=== PATIENT | male | born 1975 | race Caucasian/White ===

== ENCOUNTER 2020-10-13 08:42 | Emergency (ER) | payer OTHER ==
[~2020-10-13] VITALS: Ht 190.5 cm; Wt 100.0 kg
[2020-10-13 09:10] VITALS: BP 116/66
--- NOTE | 2020-10-13 09:16 | PHYS DOC ---
Past Medical History Past Medical History: No Pertinent History Past Surgical History: No Surgical History Smoking Status: Current Every Day Smoker Alcohol Use: None General Adult EDM: Chief Complaint: BACK PAIN OR INJURY HPI: HPI: Patient is a 45 year old male presents emergency department reporting a sudden onset of right low back pain that started at approximately 745 this morning when he was throwing bags filled with leaves over a fence. Patient states that he was moving a twisting motion and he felt his low back pop and then felt the pain immediately. Patient states that he is unable to stand straight up without severe pain. Patient reports his pain a 10/10 on a 1-10 pain scale. Patient states he did not take anything for his pain prior to coming to the emergency department this morning. Patient states that he had his help him to the car and that she drove him here for evaluation. Patient's is at bedside. Patient states that he had only one other episode of low back pain like this approximately 6 years ago while doing the same type of motion. Patient states he was diagnosed with sciatica. Patient states that the pain is mainly on the right side of his low back, pain radiates down right buttocks and down leg feeling numb and tingly when he stands in an upright position. Patient states that he stays in a bent over position bracing himself with his arms that his pain is more tolerable. Patient denies loss of bowel or loss of bladder. P atient denies any swelling to his extremities. Patient denies any recent fever or chills, denies chest pains, denies shortness of breath. Patient denies any other physical complaints or physical ailments. Patient states he has a history of gastric ulcers for which he takes as needed MiraLAX and daily Pepcid AC. Patient denies allergies to medications. Review of Systems: Review of Systems: 14 body systems of review of systems have been reviewed. See HPI for pertinent positives and negative responses, otherwise all other systems are negative, nonpertinent or noncontributory. Heart Score: Risk Factors: Risk Factors: DM, Current or recent (<one month) smoker, HTN, HLP, family history of CAD, obesity. Risk Scores: Score 0 - 3: 2.5% MACE over next 6 weeks - Discharge Home Score 4 - 6: 20.3% MACE over next 6 weeks - Admit for Clinical Observation Score 7 - 10: 72.7% MACE over next 6 weeks - Early Invasive Strategies Current Medications: Patient reports taking [id number]-rizwylr Pepcid AC, takes prescription strength MiraLAX. Allergies: Allergies: Patient denies allergies to medications. Physical Exam: PE: Constitutional: Well developed, well nourished, no acute distress, non-toxic appearance. Patient presents in a bent over standing position bracing self on chair with arms. HENT: Normocephalic, atraumatic, bilateral external ears normal, oropharynx moist, no oral exudates, nose normal. Eyes: PERRLA, EOMI, conjunctiva normal, no discharge. Neck: Normal range of motion, no tenderness, supple, no stridor. Cardiovascular:Heart rate regular rhythm, no murmur Lungs & Thorax: Bilateral breath sounds clear to auscultation Abdomen: Bowel sounds normal, soft, no tenderness, no masses, no pulsatile masses. Skin: Warm, dry, no erythema, no rash. Back: No CVA tenderness elicited, pain to palpation along lower lumbar spine and right side lumbar area. No pain elicited to palpation along right buttocks or down right leg. Pain elicited during passive range of motion. Increased pain when standing and orthostasis position. Patient reports numbness down the back of right leg when standing and orthostasis position. Patient immediately resumes bent over standing position with bracing arms on chair for comfort after physical examination. Distal cap refill less than 2 seconds. 2+ dorsalis pedis and posterior tibial pulses. No lower extremity edema or swelling appreciated. Extremities: No tenderness, no cyanosis, no clubbing, ROM intact, no edema. Neurologic: Alert and oriented X 3, normal motor function, normal sensory function, no focal deficits noted. Psychologic: Affect normal, judgement normal, mood normal. Current Patient Data: Vital Signs: Vital Signs Date Time Temp Pulse Resp B/P (MAP) Pulse Ox O2 Delivery O2 Flow Rate FiO2 10/13/20 09:10 98.0 71 18 116/66 (83) 98 Room Air 98.0 EKG: EKG: [] Radiology/Procedures: Radiology/Procedures: : 1975 LOCATION: ER AGE: 45 SEX: M EXAM STATUS: REG ER ORD. PHYSICIAN: ADAMOVICH,CRESCENCIO SINGING WAITER OR WAITRESS REASON: SUDDEN ONSET LOW BACK PAIN PROCEDURE: CT LUMBAR SPINE WO CONTRAST EXAM: CT Cervical Spine with and without IV contrast INDICATION: Reason: SUDDEN ONSET LOW BACK PAIN / Spl. Instructions: / History: TECHNIQUE: Multi-detector row CT images were obtained through the cervical spine with and without the use of IV contrast. Post-processing sagittal and coronal reconstructed images were obtained for interpretation. All CT scans per formed at this facility utilize dose optimization techniques as appropriate to the exam, including the following: Automated exposure control and adjustment of the mA and/or KV according to patient size (this includes techniques or standardized protocols for targeted exams where dose is indication/reason for exam). IV CONTRAST: Administered COMPARISON: None FINDINGS: CRANIOCERVICAL JUNCTION: Unremarkable. ALIGNMENT: Alignment is within normal limits. OSSEOUS: No evidence of fracture or bone destruction. DISC SPACES: Mild multilevel disc space narrowing is present, most conspicuously at L3-L4, associated with a diffuse disc bulge. FACET JOINTS: Unremarkable. SPINAL CANAL: Unremarkable. NEUROFORAMINA: Unremarkable. SOFT TISSUES: Unremarkable. IMPRESSION: 1. No evidence for acute fracture or subluxation. 2. Mild multilevel degenerative disc disease, most conspicuous on CT at L3-L4.. Electronically signed by: Rachana Cochran MD (10/13/2020 10:12 AM) [id number] DICTATED and SIGNED BY: RACHANA COCHRAN MD DATE: 10/13/20 [id number] 0 Course & Med Decision Making: Course & Med Decision Making Pertinent Labs and Imaging studies reviewed. (See chart for details) 45-year-old male vital signs reviewed who presents with low back pain after throwing bags of leaves over fence in a twisting motion. Physical exam revealed no saddle anesthesia, however related to midline spinal tenderness of the low lumbar area a CT lumbar spine was ordered. Also p.o. muscle relaxer and I am Toradol for pain along with 1 p.o. 5/[address] results at this t [facility]. CT imaging interpreted by house radiologist showed no acute fracture, concerning for degenerative changes, discussed findings with patient, reexamination of patient showed patient pain more tolerable, patient able to sit and normal upright sitting position without acute unbearable pain, rated his pain a 5/10 1- 10 pain scale. Discussed back exercises at home, follow-up with primary care regarding CT concerning for degenerative disc disease, prescriptions for Flexeril and ibuprofen at home, patient gave verbal understanding of discharge home instructions, follow-up with primary care instructions, return to ER precautions and concerns, had no further questions or concerns was discharged home without incident. Carisa Disclaimer: Carisa Disclaimer: This electronic medical record was generated, in whole or in part, using a voice recognition dictation system. Departure Departure Impression: Primary Impression: Sciatica Qualified Codes: M54.31 - Sciatica, right side Additional Impression: Lumbago Qualified Codes: M54.41 - Lumbago with sciatica, right side Disposition: DC HOME SELF CARE/HOMELESS Condition: IMPROVED Referrals: UNKNOWN PCP NAME (PCP) Patient Instructions: Back Pain, Adult Additional Instructions: Please take prescription medications as directed, follow-up with your primary care doctor for ongoing back pain symptoms, discussed with your primary care doctor abnormal CT performed here today show indeed generative disc disease of your lumbar spine, return emergency department for worsening symptoms or other concerns. EMERGENCY DEPARTMENT GENERAL DISCHARGE INSTRUCTIONS Thank you for coming to [facility] Emergency Department (ED) today and trusting us with you care. We trust that you had a positive experience in our Emergency Department. If you wish to speak to the department management, you may call the Director at [phone]. YOUR FOLLOW UP INSTRUCTIONS ARE FOLLOWS: 1. Do you have a private Doctor? If you do not have a private doctor, please ask for a resource list of physicians or clinics that may be able to assist you with follow up care. 2. The Emergency Physicain has interpreted your x-rays. The X-Ray specialist will also review them. If there is a change in the findings, you will be notified in 48 hours when at all possible. 3. A lab test or culture has been done, your results will be reviewed and you will be notified if you need a change in treatment. ADDITIONAL INSTRUCTIONS AND INFORMATION: 1. Your care today has been supervised by a physician who is specially trained in emergency care. Many problems require more than one evaluation for a complete diagnosis and treatment. We recommend that you schedule your follow up appointment as recommended to ensure complete treatment of you illness or injury. If you are unable to obtain follow up care and continue to have a problem, or if your condition worsens, we recommend that you return to the ED. 2. We are not able to safely determine your condition over the phone nor are we able to give sound medical advice over the phone. For these safety reasons, if you call for medical advice we will ask you to come to the ED for further evaluation. 3. If you have any questions regarding these discharge instructions please call the ED at [phone]. SAFETY INFORMATION: In the interest of safety, wellness, and injury prevention; we encourage you to wear your sealbelt, if you smoke; quite smoking, and we encourage family to use a protective helmet for bicycling and other sporting events that present an increased risk for head injury. IF YOUR SYMPTOMS WORSEN OR NEW SYMPTOMS DEVELOP, OR YOU HAVE CONCERNS ABOUT YOUR CONDITION; OR IF YOUR CONDITION WORSENS WHILE YOU ARE WAITING FOR YOUR FOLLOW UP APPOINTMENT; EITHER CONTACT YOUR PRIMARY CARE DOCTOR, THE PHYSICIAN WHOSE NAME AND NUMBER YOU WERE GIVEN, OR RETURN TO THE ED IMMEDIATELY. Scripts Cyclobenzaprine Hcl (CYCLOBENZAPRINE HCL) 10 Mg Tablet 10 MG PO TID PRN PRN for MUSCLE SPASMS, #20 TAB 0 Refills Prov: EFE JOHNSON APRN 10/13/20 Ibuprofen (IBUPROFEN) 600 Mg Tablet 600 MG PO TID PRN PRN for INFLAMMATION, #20 TAB 0 Refills Prov: EFE JOHNSON APRN 10/13/20 EFE JOHNSON APRN Oct 13, 2020 09:16
[2020-10-13] MEDS ORDERED: methylPREDNISolone ACETATE 80 MG/ML VIAL. IM ONE (10:00)
[2020-10-13] MEDS ORDERED: HYDROcodone/APAP 5/325MG 1 TAB TABLET PO ONE (10:00)
[2020-10-13] MEDS ORDERED: CYCLOBENZAPRINE 10 MG TABLET. PO ONE (10:00)
[2020-10-13] MEDS ORDERED: KETOROLAC 60 MG/2 ML VIAL. IM ONE (10:00)
--- NOTE | 2020-10-13 10:17 | RAD ---
EXAM: CT Cervical Spine with and without IV contrast INDICATION: Reason: SUDDEN ONSET LOW BACK PAIN / Spl. Instructions: / History: TECHNIQUE: Multi-detector row CT images were obtained through the cervical spine with and without th e use of IV contrast. Post-processing sagittal and coronal reconstructed images were obtained for int erpretation. All CT scans performed at this facility utilize dose optimization techniques as appropri ate to the exam, including the following: Automated exposure control and adjustment of the mA and/or KV according to patient size (this includes techniques or standardized protocols for targeted exams w here dose is indication/reason for exam). IV CONTRAST: Administered COMPARISON: None FINDINGS: CRANIOCERVICAL JUNCTION: Unremarkable. ALIGNMENT: Alignment is within normal limits. OSSEOUS: No evidence of fracture or bone destruction. DISC SPACES: Mild multilevel disc space narrowing is present, most conspicuously at L3-L4, associate d with a diffuse disc bulge. FACET JOINTS: Unremarkable. SPINAL CANAL: Unremarkable. NEUROFORAMINA: Unremarkable. SOFT TISSUES: Unremarkable. IMPRESSION: 1. No evidence for acute fracture or subluxation. 2. Mild multilevel degenerative disc disease, most conspicuous on CT at L3-L4.. Electronically signed by: Rafa Cochran MD (10/13/2020 10:12 AM) [id number]
[2020-10-13] MEDS ORDERED: IBUP-1007 PO (10:29)
[2020-10-13] MEDS ORDERED: CYCL10TA2 PO (10:29)
== END 2020-10-13 10:45 | disposition home or self-care (01) ==
LOC: ER 08:42
DX: M54.41 Lumbago with sciatica, right side (principal); F17.200 Nicotine dependence, unspecified, uncomplicated
CPT/HCPCS: 72131; 96372; 99284; J1040; J1885

== ENCOUNTER 2021-06-09 11:14 | Observation (INO) | payer OTHER ==
[~2021-06-09] VITALS: Ht 190.5 cm; Wt 105.0 kg
[~2021-06-09 11:14] MED LIST: CYCL10TA2 PO; IBUP-1007 PO
[2021-06-09 11:39] LABS: BASO % 1 % (0-3); EOS % 0 % (0-3); HEMATOCRIT 45.8 % (39.0-53.0); LYMPH # 1.8 x10^3/uL (1.0-4.8); LYMPH % 22 % (24-48); MEAN CORPUSCULAR HEMOGLOBIN 32 pg (25-35); MEAN CORPUSCULAR HGB CONC 35 g/dL (31-37); MEAN CORPUSCULAR VOLUME 92 fL (79-100); MONO # 0.8 x10^3/uL (0.0-1.1); MONO % 10 % (0-9); NEUT # 5.6 x10^3/uL (1.8-7.7); NEUT % 68 % (31-73); PLATELET COUNT 284 x10^3/uL (140-400); RED BLOOD COUNT 4.99 x10^6/uL (4.30-5.70); RED CELL DISTRIBUTION WIDTH 13.8 % (11.5-14.5); WHITE BLOOD COUNT 8.3 x10^3/uL (4.0-11.0)
[2021-06-09 11:47] LABS: CALCIUM 10.2 mg/dL (8.5-10.1); CREATININE 1.2 mg/dL (0.7-1.3); GFR 64.9; POTASSIUM 3.9 mmol/L (3.5-5.1)
[2021-06-09 11:54] LABS: ALBUMIN 4.1 g/dL (3.4-5.0); ALBUMIN/GLOBULIN RATIO 1.2 (1.0-1.7); MAGNESIUM 1.9 mg/dL (1.8-2.4); TOTAL BILIRUBIN 0.4 mg/dL (0.2-1.0); TOTAL PROTEIN 7.5 g/dL (6.4-8.2)
--- NOTE | 2021-06-09 11:55 | RAD ---
EXAM: XR CHEST 1V 06/09/2021 11:22 AM CLINICAL INDICATION: Chest pain COMPARISON: None TECHNIQUE: AP upright view of the chest FINDINGS: The heart and mediastinum are normal. Lungs are well-expanded and clear. No consolidatio n, pleural effusion, or pneumothorax. Pulmonary vascularity is normal. No acute osseous abnormality. IMPRESSION: Normal chest radiograph. Electronically signed by: Nasra Miller MD (06/09/2021 11:52 AM) [id number]
--- NOTE | 2021-06-09 14:01 | PHYS DOC ---
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 On route EMS gave him 3 and 24 mg aspirin and 2 doses of nitroglycerin. Patient felt much better. Patient had no history of previous coronary artery disease, no history of blood clot disorder, no cough, no fever. Patient said he was vaccinated for COVID-19 only 1 dose 2 months ago. Patient denies any cough or fever, he denies any abdominal pain. Patient denies any recent travel operation Review of Systems: Review of Systems: Constitutional: Denies fever or chills. [] Eyes: Denies change in visual acuity. [] HENT: Denies nasal congestion or sore throat. [] Respiratory: Denies cough or shortness of breath. [] Cardiovascular: Positive for chest pain. GI: Denies abdominal pain, nausea, vomiting, bloody stools or diarrhea. [] : Denies dysuria. [] Musculoskeletal: Denies back pain or joint pain. [] Integument: Denies rash. [] Neurologic: Denies headache, focal weakness or sensory changes. [] Endocrine: Denies polyuria or polydipsia. [] Lymphatic: Denies swollen glands. [] Psychiatric: Denies depression or anxiety. [] Heart Score: C/O Chest Pain: Yes HEART Score for Chest Pain: HEART Score for Chest Pain Response (Comments) Value History Moderately Suspicious 1 ECG Nonspecific Repolarizatio 1 Age >45 - < 65 1 Risk Factors 1 or 2 Risk Factors 1 Troponin < Normal Limit 0 Total 4 Risk Factors: Risk Factors: DM, Current or recent (<one month) smoker, HTN, HLP, family history of CAD, obesity. Risk Scores: Score 0 - 3: 2.5% MACE over next 6 weeks - Discharge Home Score 4 - 6: 20.3% MACE over next 6 weeks - Admit for Clinical Observation Score 7 - 10: 72.7% MACE over next 6 weeks - Early Invasive Strategies Allergies: Allergies: Allergies Coded Allergies Type Severity Reaction Last Updated Verified No Known Drug Allergies 10/13/20 No Physical Exam: PE: Constitutional: Well developed, well nourished, no acute distress, non-toxic appearance. [] HENT: Normocephalic, atraumatic, bilateral external ears normal, oropharynx moist, no oral exudates, nose normal. [] Eyes: PERRLA, EOMI, conjunctiva normal, no discharge. [] Neck: Normal range of motion, no tenderness, supple, no stridor. [] Cardiovascular:Heart rate regular rhythm, no murmur [] Lungs & Thorax: Bilateral breath sounds clear to auscultation [] Abdomen: Bowel sounds normal, soft, no tenderness, no masses, no pulsatile masses. [] Skin: Warm, dry, no erythema, no rash. [] Back: No tenderness, no CVA tenderness. [] Extremities: No tenderness, no cyanosis, no clubbing, ROM intact, no edema. [] Neurologic: Alert and oriented X 3, normal motor function, normal sensory function, no focal deficits noted. [] Psychologic: Affect normal, judgement normal, mood normal. [] Current Patient Data: Labs: Laboratory Tests Test 06/09/21 11:25 06/09/21 12:53 White Blood Count 8.3 x10^3/uL (4.0-11.0) Red Blood Count 4.99 x10^6/uL (4.30-5.70) Hemoglobin 16.0 g/dL (13.0-17.5) Hematocrit 45.8 % (39.0-53.0) Mean Corpuscular Volume 92 fL (79-100) Mean Corpuscular Hemoglobin 32 pg (25-35) Mean Corpuscular Hemoglobin Concent 35 g/dL (31-37) Red Cell Distribution Width 13.8 % (11.5-14.5) Platelet Count 284 x10^3/uL (140-400) Neutrophils (%) (Auto) 68 % (31-73) Lymphocytes (%) (Auto) 22 % (24-48) L Monocytes (%) (Auto) 10 % (0-9) H Eosinophils (%) (Auto) 0 % (0-3) Basophils (%) (Auto) 1 % (0-3) Neutrophils # (Auto) 5.6 x10^3/uL (1.8-7.7) Lymphocytes # (Auto) 1.8 x10^3/uL (1.0-4.8) Monocytes # (Auto) 0.8 x10^3/uL (0.0-1.1) Eosinophils # (Auto) 0.0 x10^3/uL (0.0-0.7) Basophils # (Auto) 0.0 x10^3/uL (0.0-0.2) Sodium Level 139 mmol/L (136-145) Potassium Level 3.9 mmol/L (3.5-5.1) Chloride Level 104 mmol/L (98-107) Carbon Dioxide Level 23 mmol/L (21-32) Anion Gap 12 (6-14) Blood Urea Nitrogen 18 mg/dL (8-26) Creatinine 1.2 mg/dL (0.7-1.3) Estimated GFR (Cockcroft-Gault) 64.9 BUN/Creatinine Ratio 15 (6-20) Glucose Level 113 mg/dL (70-99) H Calcium Level 10.2 mg/dL (8.5-10.1) H Magnesium Level 1.9 mg/dL (1.8-2.4) Total Bilirubin 0.4 mg/dL (0.2-1.0) Aspartate Amino Transferase (AST) 16 U/L (15-37) Alanine Aminotransferase (ALT) 32 U/L (16-63) Alkaline Phosphatase 77 U/L (46-116) Troponin I Quantitative < 0.017 ng/mL (0.000-0.055) DW-Tes-E-Type Natriuretic Peptide 78 pg/mL (0-124) Total Protein 7.5 g/dL (6.4-8.2) Albumin 4.1 g/dL (3.4-5.0) Albumin/Globulin Ratio 1.2 (1.0-1.7) Lipase 68 U/L (73-393) L SARS-CoV-2 Antigen (Rapid) Negative (NEGATIVE) Laboratory Tests 06/09/21 11:25 Laboratory Tests 06/09/21 11:25 Vital Signs: Vital Signs Date Time Temp Pulse Resp B/P (MAP) Pulse Ox O2 Delivery O2 Flow Rate FiO2 06/09/21 12:37 65 15 127/67 (87) 97 Room Air 06/09/21 11:30 98.2 98.2 EKG: EKG: EKG was done at 1120, heart rate of 77 bpm, sinus rhythm, right bundle branch block, no ST segment elevation. Radiology/Procedures: Radiology/Procedures: [][facility] [address] [place] [address] IMAGING REPORT Signed PATIENT: RAVEN GARVIN ACCOUNT: [id number] : 1975 LOCATION: ER AGE: 46 SEX: M EXAM STATUS: REG ER ORD. PHYSICIAN: HENOK SCHNEIDER DO REASON: chest pain PROCEDURE: PORTABLE CHEST 1V EXAM: XR CHEST 1V 06/09/2021 11:22 AM CLINICAL INDICATION: Chest pain COMPARISON: None TECHNIQUE: AP upright view of the chest FINDINGS: The heart and mediastinum are normal. Lungs are well-expanded and clear. No consolidation, pleural effusion, or pneumothorax. Pulmonary vascularity is normal. No acute osseous abnormality. IMPRESSION: Normal chest radiograph. Electronically signed by: Nasra Miller MD (06/09/2021 11:52 AM) [id number] DICTATED and SIGNED BY: NASRA MILLER MD DATE: 06/09/21 [id number] 0 Course & Med Decision Making: Course & Med Decision Making Pertinent Labs and Imaging studies reviewed. (See chart for details) Patient is a 46 male who present to ER due to substernal chest pain EKG showed right bundle branch block, cardiac enzymes come back normal so far. Patient denies any chest pain at this time. Patient will be admitted for observation Dragon Disclaimer: Dragon Disclaimer: This electronic medical record was generated, in whole or in part, using a voice recognition dictation system. Departure Departure Impression: Primary Impression: Chest pain Disposition: ADMITTED INPATIENT Admitting Physician: MATHEW (Dr. Galloway) Condition: IMPROVED Referrals: NON,STAFF (PCP) HENOK SCHNEIDER DO Jun 09, 2021 14:01
--- NOTE | 2021-06-09 15:51 | PDOC1 ---
History and Physical Date of Service: DOS: DATE: 06/09/21 TIME: 15:47 Chief Complaint: Chief Complain: Chest pain. 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 He was given 324 mg of aspirin and 2 doses of nitroglycerin and his chest pain feels better. At this point he does not complaining of chest pain or any other symptoms. Denies any fevers, history of coronary artery disease, abdominal pain, diarrhea, dysuria, hematuria or bloody stools. Patient is not on any blood thinners. Patient was vaccinated for Covid 2 months ago. Past Medical/Surgical History: PMH/PSH: Past Medical History: No Pertinent History Past Surgical History: left arm Allergies: Allergies: Coded Allergies: No Known Drug Allergies (Unverified , 10/13/20) Family History: Family History: Reviewed with no relevant findings Social History: Social History: Smoking Status: Current Every Day Smoker Alcohol Use: None Current Medications: Current Medications Active Scripts Active Cyclobenzaprine Hcl 10 Mg Tablet 10 Mg PO TID PRN PRN Ibuprofen 600 Mg Tablet 600 Mg PO TID PRN PRN ROS: Review of Systems Review of System REVIEW OF SYSTEMS: GENERAL: Denies weakness SKIN: No bruising, hair changes or rashes. EYES: No blurred, double or loss of vision. NOSE AND THROAT: No history of nosebleeds, hoarseness or sore throat. HEART: Positive for chest pain LUNGS: Denies cough, hemoptysis, wheezing or shortness of breath. GASTROINTESTINAL: Denies changes in appetite, nausea, vomiting, diarrhea or constipation. GENITOURINARY: No history of frequency, urgency, hesitancy or nocturia. NEUROLOGIC: Denies history of numbness, tingling, or tremor. PSYCHIATRIC: No history of panic, anxiety or depression. ENDOCRINE: No history of heat or cold intolerance, polyuria or polydipsia. EXTREMITIES: Denies joint pain, pain on walking or stiffness. Physical Exam: Vital Signs: Vital Signs Date Time Temp Pulse Resp B/P (MAP) Pulse Ox O2 Delivery O2 Flow Rate FiO2 06/09/21 14:28 81 15 127/62 (83) 98 06/09/21 12:37 Room Air 06/09/21 11:30 98.2 98.2 Physcial Exam: General: Well developed, well nourished, no acute distress, well appearing HEENT: Pupils equally round and reactive to light, EOMI, no discharge, normal conjunctiva Neck: Supple, no nuchal rigidity, no JVD, trachea midline, no tenderness Cardiac: RRR, no murmurs, no gallops, no rubs Chest/Lungs: CTAB, no wheeze, no rhonchi, no crackles Abdomen: soft, non-distended, no guarding, no peritoneal signs, non-tender Back: No tenderness Extremities: no edema, pulses intact, non-tender,capillary refill <3 sec bilateral upper and lower extremities, Neuro: Alert and oriented x 4, no focal deficits, normal speech Labs: Labs: Laboratory Tests Test 06/09/21 11:25 06/09/21 12:53 06/09/21 14:04 White Blood Count 8.3 x10^3/uL (4.0-11.0) Red Blood Count 4.99 x10^6/uL (4.30-5.70) Hemoglobin 16.0 g/dL (13.0-17.5) Hematocrit 45.8 % (39.0-53.0) Mean Corpuscular Volume 92 fL (79-100) Mean Corpuscular Hemoglobin 32 pg (25-35) Mean Corpuscular Hemoglobin Concent 35 g/dL (31-37) Red Cell Distribution Width 13.8 % (11.5-14.5) Platelet Count 284 x10^3/uL (140-400) Neutrophils (%) (Auto) 68 % (31-73) Lymphocytes (%) (Auto) 22 % (24-48) Monocytes (%) (Auto) 10 % (0-9) Eosinophils (%) (Auto) 0 % (0-3) Basophils (%) (Auto) 1 % (0-3) Neutrophils # (Auto) 5.6 x10^3/uL (1.8-7.7) Lymphocytes # (Auto) 1.8 x10^3/uL (1.0-4.8) Monocytes # (Auto) 0.8 x10^3/uL (0.0-1.1) Eosinophils # (Auto) 0.0 x10^3/uL (0.0-0.7) Basophils # (Auto) 0.0 x10^3/uL (0.0-0.2) Sodium Level 139 mmol/L (136-145) Potassium Level 3.9 mmol/L (3.5-5.1) Chloride Level 104 mmol/L (98-107) Carbon Dioxide Level 23 mmol/L (21-32) Anion Gap 12 (6-14) Blood Urea Nitrogen 18 mg/dL (8-26) Creatinine 1.2 mg/dL (0.7-1.3) Estimated GFR (Cockcroft-Gault) 64.9 BUN/Creatinine Ratio 15 (6-20) Glucose Level 113 mg/dL (70-99) Calcium Level 10.2 mg/dL (8.5-10.1) Magnesium Level 1.9 mg/dL (1.8-2.4) Total Bilirubin 0.4 mg/dL (0.2-1.0) Aspartate Amino Transf (AST/SGOT) 16 U/L (15-37) Alanine Aminotransferase (ALT/SGPT) 32 U/L (16-63) Alkaline Phosphatase 77 U/L (46-116) Troponin I Quantitative < 0.017 ng/mL (0.000-0.055) < 0.017 ng/mL (0.000-0.055) PX-[id number]-Type Natriuretic Peptide 78 pg/mL (0-124) Total Protein 7.5 g/dL (6.4-8.2) Albumin 4.1 g/dL (3.4-5.0) Albumin/Globulin Ratio 1.2 (1.0-1.7) Lipase 68 U/L (73-393) SARS-CoV-2 Antigen (Rapid) Negative (NEGATIVE) Laboratory Tests Test 06/09/21 11:25 06/09/21 12:53 06/09/21 14:04 White Blood Count 8.3 x10^3/uL (4.0-11.0) Red Blood Count 4.99 x10^6/uL (4.30-5.70) Hemoglobin 16.0 g/dL (13.0-17.5) Hematocrit 45.8 % (39.0-53.0) Mean Corpuscular Volume 92 fL (79-100) Mean Corpuscular Hemoglobin 32 pg (25-35) Mean Corpuscular Hemoglobin Concent 35 g/dL (31-37) Red Cell Distribution Width 13.8 % (11.5-14.5) Platelet Count 284 x10^3/uL (140-400) Neutrophils (%) (Auto) 68 % (31-73) Lymphocytes (%) (Auto) 22 % (24-48) Monocytes (%) (Auto) 10 % (0-9) Eosinophils (%) (Auto) 0 % (0-3) Basophils (%) (Auto) 1 % (0-3) Neutrophils # (Auto) 5.6 x10^3/uL (1.8-7.7) Lymphocytes # (Auto) 1.8 x10^3/uL (1.0-4.8) Monocytes # (Auto) 0.8 x10^3/uL (0.0-1.1) Eosinophils # (Auto) 0.0 x10^3/uL (0.0-0.7) Basophils # (Auto) 0.0 x10^3/uL (0.0-0.2) Sodium Level 139 mmol/L (136-145) Potassium Level 3.9 mmol/L (3.5-5.1) Chloride Level 104 mmol/L (98-107) Carbon Dioxide Level 23 mmol/L (21-32) Anion Gap 12 (6-14) Blood Urea Nitrogen 18 mg/dL (8-26) Creatinine 1.2 mg/dL (0.7-1.3) Estimated GFR (Cockcroft-Gault) 64.9 BUN/Creatinine Ratio 15 (6-20) Glucose Level 113 mg/dL (70-99) Calcium Level 10.2 mg/dL (8.5-10.1) Magnesium Level 1.9 mg/dL (1.8-2.4) Total Bilirubin 0.4 mg/dL (0.2-1.0) Aspartate Amino Transf (AST/SGOT) 16 U/L (15-37) Alanine Aminotransferase (ALT/SGPT) 32 U/L (16-63) Alkaline Phosphatase 77 U/L (46-116) Troponin I Quantitative < 0.017 ng/mL (0.000-0.055) < 0.017 ng/mL (0.000-0.055) SM-Gmf-A-Type Natriuretic Peptide 78 pg/mL (0-124) Total Protein 7.5 g/dL (6.4-8.2) Albumin 4.1 g/dL (3.4-5.0) Albumin/Globulin Ratio 1.2 (1.0-1.7) Lipase 68 U/L (73-393) SARS-CoV-2 Antigen (Rapid) Negative (NEGATIVE) Images: Images PROCEDURE: PORTABLE CHEST 1V EXAM: XR CHEST 1V 06/09/2021 11:22 AM CLINICAL INDICATION: Chest pain COMPARISON: None TECHNIQUE: AP upright view of the chest FINDINGS: The heart and mediastinum are normal. Lungs are well-expanded and clear. No consolidation, pleural effusion, or pneumothorax. Pulmonary vascularity is normal. No acute osseous abnormality. IMPRESSION: Normal chest radiograph. Assessment/Plan Assessment/Plan Chest pain concerning for unstable angina/NSTEMI Mild hypercalcemia EKG showing right bundle gonsalo block Troponin negative x2 Continue aspirin, consider Plavix if intermediate risk will defer this to cardiology Cardiology consulted for predischarge stress testing or left heart cath Continue nitroglycerin as needed for pain Continue beta-ryder if blood pressures allow Continue high intensity statins IV morphine as needed Consider Lovenox Maintain O2 sats between 88 to 95% Trend troponins Repeat EKG in the a.m. Continue telemetry monitoring Monitor for electrolyte abnormalities Avoid NSAIDs Smoking cessation: Total time spent was 12 minutes in face to face counseling. Patient has agreed to consider nicotine patches/gum or to start on Varnicline when discharged Justifications for Admission Other Justification TOBY BEAUCHAMP MD Jun 09, 2021 15:51
[2021-06-09] MEDS ORDERED: ACETAMINOPHEN 325 MG TABLET. PO PRN (16:00)
[2021-06-09] MEDS ORDERED: DOCUSATE SODIUM 100 MG CAPSULE. PO PRN (16:00)
[2021-06-09] MEDS ORDERED: SENNOSIDES 8.6 MG TABLET PO PRN (16:00)
[2021-06-09] MEDS ORDERED: ENOXAPARIN 40 MG/0.4 ML SYRINGE. SQ SCH (16:00)
[2021-06-09] MEDS ORDERED: NITROGLYCERIN SUBLINGUAL 0.4 MG BOTTLE OF 25. SL PRN (16:00)
[2021-06-09] MEDS ORDERED: DEXTROSE 50% 25 GM / 50ML DISP.SYRIN. IV PRN (16:00)
[2021-06-09] MEDS ORDERED: MORPHINE SULFATE 2 MG/ML INJ. IVP PRN (16:00)
[2021-06-09] MEDS ORDERED: MORPHINE SULFATE 2 MG/ML INJ. IV PRN (16:00)
[2021-06-09] MEDS ORDERED: ONDANSETRON PF 4 MG/2 ML VIAL. IVP PRN (16:00)
[2021-06-09] MEDS ORDERED: PROCHLORPERAZINE 10 MG/2 ML VIAL. IV PRN (16:00)
[2021-06-09 17:57] VITALS: BP 123/65
[2021-06-09] MEDS ORDERED: ATORVASTATIN CALCIUM 40 MG TABLET. PO SCH (21:00)
[2021-06-10] MEDS ORDERED: ASPIRIN ENTERIC COATED 81 MG TABLET.DR. PO SCH (08:00)
--- NOTE | 2021-06-14 15:01 | PDOC3 ---
[facility]-Discharge Summary Date of Admission: Date of Admission: Jun 09, 2021 Date of Discharge: Date of Discharge: Jun 10, 2021 Discharge Diagnosis: Discharge Diagnosis: Chest pain concerning for unstable angina/NSTEMI Mild hypercalcemia EKG showing right bundle gonsalo block Troponin negative x2 Continue aspirin, consider Plavix if intermediate risk will defer this to cardiology Cardiology consulted for predischarge stress testing or left heart cath Continue nitroglycerin as needed for pain Continue beta-ryder if blood pressures allow Continue high intensity statins IV morphine as needed Consider Lovenox Maintain O2 sats between 88 to 95% Trend troponins Repeat EKG in the a.m. Continue telemetry monitoring Monitor for electrolyte abnormalities Avoid NSAIDs Smoking cessation: Total time spent was 12 minutes in face to face counseling. 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 He was given 324 mg of aspirin and 2 doses of nitroglycerin and his chest pain feels better. At this point he does not complaining of chest pain or any other symptoms. Denies any fevers, history of coronary artery disease, abdominal pain, diarrhea, dysuria, hematuria or bloody stools. Patient is not on any blood thinners. Patient was vaccinated for Covid 2 months ago. Patient left AMA Disposition: Disposition/Orders: Other (Left AMA) Activity: Activity: Resume previous activity Diet: Diet: Cardiac Medications: Home Meds Active Scripts Cyclobenzaprine Hcl (CYCLOBENZAPRINE HCL) 10 Mg Tablet, 10 MG PO TID PRN PRN for MUSCLE SPASMS, #20 TAB 0 Refills Prov:EFE JOHNSON MATERIAL CONTROL SPECIALIST 10/13/20 Ibuprofen (IBUPROFEN) 600 Mg Tablet, 600 MG PO TID PRN PRN for INFLAMMATION, #20 TAB 0 Refills Prov:EFE JOHNSON MATERIAL CONTROL SPECIALIST 10/13/20 Scheduled PRN Cyclobenzaprine Hcl (Cyclobenzaprine Hcl), 10 MG PO TID PRN PRN for MUSCLE SPASMS Ibuprofen (Ibuprofen), 600 MG PO TID PRN PRN for INFLAMMATION Total Time: Total Time: Total time spent was 31 minutes in preparing scripts, discharge planning with [place] and RN, and preparing this discharge summary. Justicifation of Admission Dx: Justifications for Admission: Justification of Admission Dx: Yes TN: Acute NSTEMI TOBY BEAUCHAMP MD Jun 14, 2021 15:01
== END 2021-06-09 18:13 | disposition left against medical advice (07) ==
LOC: ER 11:14 → ED HOLD 14:19
PROVIDERS: ADMIT Internal Medicine; ATTEND Internal Medicine
DX: R07.2 Precordial pain (principal); Z20.822 Contact with and (suspected) exposure to COVID-19; F17.200 Nicotine dependence, unspecified, uncomplicated; E83.52 Hypercalcemia
CPT/HCPCS: 36415; 71045; 80053; 83690; 83735; 83880; 84484; 85025; 87426; 93005; 99285; G0378; U0003; U0005; G0379

== ENCOUNTER 2022-02-14 13:55 | Emergency (ER) | payer BC, OTHER ==
[~2022-02-14] VITALS: Ht 190.5 cm; Wt 95.6 kg
[~2022-02-14 13:55] MED LIST changes: +CYCL10TA19 PO; -CYCL10TA2 PO
[2022-02-14 14:05] VITALS: BP 113/78
[2022-02-14] MEDS ORDERED: CYCL10TA19 PO (14:20)
[2022-02-14] MEDS ORDERED: KETOROLAC 15 MG/ML VIAL. IM ONE (14:30)
--- NOTE | 2022-02-14 15:22 | PHYS DOC ---
Past Medical History Past Medical History: No Pertinent History Past Surgical History: Tonsillectomy, Other Additional Past Surgical Histo: left arm , HERNIA REPAIR Smoking Status: Current Every Day Smoker Alcohol Use: None General Adult EDM: Chief Complaint: NECK PAIN HPI: HPI: Patient is a 46 year old male with past medical history of musculoskeletal pain. Presents with right sided neck pain. Patient states it started several days ago, he states he woke up with neck pain. He has been trying Tylenol. He cannot take NSAIDs due to stomach issues. He states that he has had neck pain many times before and this feels very similar. Patient is hemodynamically stable. Otherwise has no other complaints. Pain is in the right-sided trapezius Review of Systems: Review of Systems: Constitutional: Denies fever or chills. [] Eyes: Denies change in visual acuity. [] HENT: Denies nasal congestion or sore throat. [] Respiratory: Denies cough or shortness of breath. [] Cardiovascular: Denies chest pain or edema. [] GI: Denies abdominal pain, nausea, vomiting, bloody stools or diarrhea. [] : Denies dysuria. [] Musculoskeletal: Denies back pain or joint pain. Positive right-sided neck pain [] Integument: Denies rash. [] Neurologic: Denies headache, focal weakness or sensory changes. [] Endocrine: Denies polyuria or polydipsia. [] Lymphatic: Denies swollen glands. [] Psychiatric: Denies depression or anxiety. [] Heart Score: C/O Chest Pain: No Risk Factors: Risk Factors: DM, Current or recent (<one month) smoker, HTN, HLP, family history of CAD, obesity. Risk Scores: Score 0 - 3: 2.5% MACE over next 6 weeks - Discharge Home Score 4 - 6: 20.3% MACE over next 6 weeks - Admit for Clinical Observation Score 7 - 10: 72.7% MACE over next 6 weeks - Early Invasive Strategies Current Medications: Current Medications Medications (Trade) Dose Ordered Sig/Darian Start Time Stop Time Status Last Admin Dose Admin Ketorolac Tromethamine (Toradol 15mg Vial) 15 mg 1X ONCE 02/14/22 14:30 02/14/22 14:31 DC 02/14/22 14:29 15 MG Allergies: Allergies: Allergies Coded Allergies Type Severity Reaction Last Updated Verified No Known Drug Allergies 10/13/20 No Physical Exam: PE: Constitutional: Well developed, well nourished, no acute distress, non-toxic appearance. [] HENT: Normocephalic, atraumatic, bilateral external ears normal, oropharynx moist, no oral exudates, nose normal. [] Eyes: PERRLA, EOMI, conjunctiva normal, no discharge. [] Neck: Normal range of motion, no tenderness, supple, no stridor. [] Cardiovascular:Heart rate regular rhythm, no murmur [] Lungs & Thorax: Bilateral breath sounds clear to auscultation [] Abdomen: Bowel sounds normal, soft, no tenderness, no masses, no pulsatile masses. [] Skin: Warm, dry, no erythema, no rash. [] Back: No tenderness, no CVA tenderness. Positive muscular spasms on right trapezius [] Extremities: No tenderness, no cyanosis, no clubbing, ROM intact, no edema. [] Neurologic: Alert and oriented X 3, normal motor function, normal sensory function, no focal deficits noted. [] Psychologic: Affect normal, judgement normal, mood normal. [] Current Patient Data: Vital Signs: Vital Signs Date Time Temp Pulse Resp B/P (MAP) Pulse Ox O2 Delivery O2 Flow Rate FiO2 02/14/22 14:05 98.0 71 18 113/78 (90) 95 Room Air 98.0 EKG: EKG: [] Radiology/Procedures: Radiology/Procedures: [] Impression: Right neck spasms Course & Med Decision Making: Course & Med Decision Making Pertinent Labs and Imaging studies reviewed. (See chart for details) 46-year-old male presenting with right-sided neck spasms. Patient given 1 dose of Toradol IM. Patient stated that the pain much improved. Patient was given a prescription for muscle relaxers, patient stated that he was almost to baseline with the Toradol that he was given. Patient otherwise doing well. Patient stated that he would follow-up with his primary care physician in 1 to 2 weeks, patient agreed with the plan of action. Discharged in hemodynamically stable condition. ER precautions given. Carisa Disclaimer: Carisa Disclaimer: This electronic medical record was generated, in whole or in part, using a voice recognition dictation system. Departure Departure Impression: Primary Impression: Muscle spasms of neck Disposition: 01 HOME / SELF CARE / HOMELESS Condition: GOOD Patient Instructions: Cervical Sprain Additional Instructions: Follow-up with your primary care physician in 1 to 2 weeks, you will likely need to follow-up with physical therapy to help your neck pain. You may take muscle relaxers at night. You can use on combination with ibuprofen or Tylenol. Scripts Cyclobenzaprine Hcl (CYCLOBENZAPRINE HCL) 10 Mg Tablet 1 TAB PO QHS, #20 TAB Prov: JESSICA WOODARD MD 02/14/22 JESSICA WOODARD MD February 14, 2022 15:22
== END 2022-02-14 15:22 | disposition home or self-care (01) ==
LOC: ER 13:55
DX: R25.2 Cramp and spasm (principal); M54.2 Cervicalgia; F17.200 Nicotine dependence, unspecified, uncomplicated
CPT/HCPCS: 96372; 99283; J1885